=== PATIENT | female | born 1980 | race Hispanic/Latino ===

== ENCOUNTER 2017-12-17 22:10 | Emergency (ER) | payer SELFPAY ==
[2017-12-17 22:13] VITALS: BP 151/102; BP 151/83; PULSE 61; PULSE 69; RESP 17; RESP 18; TEMP 36.8; O2SAT 97; BMI 33.1
--- NOTE | 2017-12-17 22:45 | ED.VIS.GEN ---
History of Present Illness Chief Complaint: Chest Pain Informant: Patient Onset: Hours - 1 Context: Gradual Onset - at rest, after getting out of shower Timing: Continuous Quality: ache Location: across anterior chest. radiates down LUE. Current Severity: Moderate Maximum Severity: Moderate Worsened by: lying supine Relieved by: sitting up Associated Symptoms: mild sob. developed bifrontal/biparietal WITT afterwards w/ n/v. Narrative: Patient states she has had this discomfort before but never sought care. She recently came here 3 weeks ago from [place]. No recent hospitalization DVT or PE. There is a pleuritic component to this, she has some discomfort on the right side when she takes a deep breath but it does not make the aching that she complained of in the HPI worse when she takes a breath. States the discomfort radiates into her neck and left upper extremity, worse with lying supine. The headache is unusual for her, she does have photophobia which seems to make the headache worse, she did not have nausea or vomiting until she developed the headache, which she states was when EMS arrived to pick her up for the chest discomfort. No family hx of heart disease that she knows of. Further history obtained later, patient takes up to 3 ibuprofen every day for a long time because of soreness in her feet because she works 12 hours per day most days of the week, on her feet. She also drank a red bull several hours prior to the onset of the symptoms. Prior similar symptoms: Yes Recent Illness/Hospitalization: No Past Medical History - Allergies and Home Meds Allergies/Adverse Reactions: Allergies No Known Allergies Allergy (Verified 12/17/17 22:12) Primary Care Physician: NOT,DEFINED [NON-STAFF] - Past Medical History: None Surgical History: no surgical history Smoking Status: Never smoker Alcohol: None Drugs: None Review of Systems All systems negative except as indicated General: Denies: Chills, Fever ENT: Reports: Rhinorrhea - and mild congestion. Denies: Bilateral ear pain Cardiovascular: Reports: Chest pain. Denies: Palpitations, Heart racing Respiratory: Reports: Dyspnea. Denies: Cough, Sputum, Orthopnea Gastrointestinal: Reports: Nausea, Vomiting. Denies: Abdominal pain, Melena, Hematochezia Genitourinary: Denies: Dysuria, Hematuria Musculoskeletal: Reports: Extremity Pain - LUE discomfort. Denies: Myalgias, Arthralgias, Neck pain, Back pain, Swelling Neurological: Reports: Headache. Denies: Weakness, Numbness Physical Exam Vital Signs/Narrative: Vital Signs Temp Pulse Resp BP Pulse Ox 12/17/17 22:13 98.2 F 61 17 151/102 H 97 Inital Vital Signs reviewed: Yes General: Well nourished, Well developed Head: Normocephalic, Atraumatic Eyes: Perrl, EOMI ENT: Moist mucous membranes, No rhinorrhea Neck: Supple, Nontender Cardiovascular: Regular rate, Regular rhythm, No murmurs, - - = bilat 2+/4 rad pulses Respiratory: No distress, CTA bilaterally, Chest tenderness - right chest wall, reproducing the pleuritic discomfort she is having. no crepitance/rash Abdomen: Soft, Nontender, Nondistended, Normal bowel sounds Back: Nontender, Normal Inspection. Negative for: CVA tenderness Extremities: Nontender - no calf tenderness, No edema Skin: Normal color, No rash Neurological: Alert, Oriented x3, Cranial nerves II-XII grossly intact, Normal Strength, Normal Sensation Psychological: Normal affect Diagnostic/Tx/Re-eval Clinical Impression(s) from Imaging Studies Chest X-Ray 12/17/17 22:55 IMPRESSION: No active pulmonary disease. Electronically Signed: Manny Friend MD at 23:07 EDT Tel , Service support , - Rhythm Strip Rhythm Strip: Sinus Rhythm Rate: 65 Ectopy: None - EKG Initial EKG Interpretation: Sinus Rhythm, No Acute Injury Pattern, - - normal EKG Prior: No Prior - Medical Decision Making Patient was given a GI cocktail which was completely relieved her chest aching discomfort. It did not help the pleuritic right-sided discomfort which is reproducible with palpation. However, Toradol did help that some, and with Reglan, her migraine is much improved. Chest aching is most likely esophageal in nature/etiology. Her vital signs are normal and her PERC score is 0, negating further workup being indicated to rule out pulmonary embolus at this time in this patient. I reassured her. Her EKG is normal and her chest x-ray is normal, I do not think she needs further testing to rule out acute coronary syndrome in this situation. She has no risk. She is given a dose of Protonix and advised to decrease the ibuprofen she is taking, trying to take Tylenol instead for the next couple weeks, and if she gets recurrent symptoms to take a daily PPI for 2 weeks, following up. She is comfortable with that plan. ED Disposition - Plan for ED Patient: Disposition: Home or Assisted Living Chief Complaint: Chest Pain Diagnosis: Chest pain, unspecified, Chest wall pain, Migraine headache without aura Instructions: ED Chest Pain NonCardiac Referrals: NOT,DEFINED [NON-STAFF] - Yesenia Engle [NON-STAFF] - 1 Week if not improving Additional Instructions: If recurrent symptoms, take Prilosec OTC 1 pill daily for 2 weeks
[2017-12-17] MEDS: Mag Hydrox/Al Hydrox/Simeth 30 ML UDC PO (23:08)
[2017-12-17] MEDS: Metoclopramide 10 MG/2 ML Vial 5 MG IV (23:08)
[2017-12-17] MEDS: Ketorolac 30 MG/ML Syringe IV (23:08)
[2017-12-17 23:13] VITALS: BP 143/91; PULSE 64; RESP 21; O2SAT 99
[2017-12-17] MEDS: Pantoprazole Sodium 40 MG Tablet PO (23:45)
[2017-12-17 23:49] VITALS: BP 122/87; PULSE 67; RESP 18; O2SAT 99
== END 2017-12-17 23:50 | disposition home or self-care (01) ==
PROVIDERS: Emergency Provider Emergency Medicine
DX: R07.9 Chest pain, unspecified (principal); G43.009 Migraine without aura, not intractable, without status migrainosus; R06.02 Shortness of breath; R11.2 Nausea with vomiting, unspecified; M79.602 Pain in left arm
CPT/HCPCS: 71045; 93005; 96361; 96374; 96375; 99285; J7030; J7040; A4216